=== PATIENT | female | born 1975 | race Caucasian/White ===

== ENCOUNTER → 2023-11-08 | Outpatient (CLI) | payer OTHER ==
[~2023-11-08] MED LIST: ALLEGRA 180MG180 MG PO; FLONASEALLERGY NS; GAS RELIEF 8080 MG PO; HYZAAR 50-12.1 UDTAB PO; LASIX 40MG TABL40 MG PO; LUNESTA3 MG PO; MAGNESIUM200 MG PO; MASON NATURAL2000 IU PO; MASON NATURAL600 MG PO; MOBIC15 MG PO; MOTRIN 600600 MG/TAB PO; NORCO 325 MG-51 TAB PO; OMEGA-3 1000 MG1 CAP PO; PAXIL 10MG10 MG PO; PHENTERMINE15 MG PO; PRILOSEC 20MG20 MG PO; PROAIR HFA0.09 MG/AC IH; STOOL SOFTENER100 M2 PO; THE MEDICINE S200 M2 PO; TRELEGY ELLIPT1 EACH IH
== END ==
LOC: MC.RAD 12:52
DX: R92.0 Mammographic microcalcification found on diagnostic imaging of breast (principal)
CPT/HCPCS: A4648

== ENCOUNTER 2023-11-09 11:20 | Day surgery (SDC) | payer OTHER ==
[~2023-11-09] VITALS: Ht 162.6 cm; Wt 89.0 kg
[~2023-11-09 11:20] MED LIST changes: -ALLEGRA 180MG180 MG PO; -FLONASEALLERGY NS; -GAS RELIEF 8080 MG PO; -HYZAAR 50-12.1 UDTAB PO; -LASIX 40MG TABL40 MG PO; +LR 1,000 ML IV SCH; -LUNESTA3 MG PO; -MAGNESIUM200 MG PO; -MASON NATURAL2000 IU PO; -MASON NATURAL600 MG PO; -MOBIC15 MG PO; -MOTRIN 600600 MG/TAB PO; -NORCO 325 MG-51 TAB PO; -OMEGA-3 1000 MG1 CAP PO; -PAXIL 10MG10 MG PO; -PHENTERMINE15 MG PO; -PRILOSEC 20MG20 MG PO; -PROAIR HFA0.09 MG/AC IH; -STOOL SOFTENER100 M2 PO; -THE MEDICINE S200 M2 PO; -TRELEGY ELLIPT1 EACH IH
[2023-11-09] MEDS ORDERED: Midazolam 2 MG/2 ML VIAL ONE ×2 (12:43→15:48)
[2023-11-09] MEDS ORDERED: fentaNYL 50 MCG/ML 2 ML VIAL ONE (12:43)
[2023-11-09] MEDS ORDERED: Lidocaine PF 2% (20 MG/ML) 5 ML VIAL ONE (12:43)
[2023-11-09] MEDS ORDERED: dexAMETHasone 10 MG/ML VIAL ONE ×3 (12:44→16:59)
[2023-11-09 12:45] VITALS: BP 133/88; PULSE 98; TEMP 97.4
--- NOTE | 2023-11-09 12:58 | NUR ---
Pt arrives to [facility] at 1215 from radiology. Admitted to [facility] bay 6. at bedside. Consents signed. Admission assessments complete. 20G IV site inserted into left hand, LR infusing without issue. See EMAR for medications. Allergies, medications, and pharamcy confirmed with patient. Anesthesia in room to speak with patient. Pt has urine void x1, not measured. Resting in cart in low position, call light within reach.
[2023-11-09] MEDS ORDERED: PHENTERMINE15 MG PO (13:02)
[2023-11-09] MEDS ORDERED: MOBIC15 MG PO (13:02)
[2023-11-09] MEDS ORDERED: MAGNESIUM200 MG PO (13:03)
[2023-11-09] MEDS ORDERED: THE MEDICINE S200 M2 PO (13:04)
[2023-11-09] MEDS ORDERED: OMEGA-3 1000 MG1 CAP PO (13:04)
[2023-11-09] MEDS ORDERED: MASON NATURAL600 MG PO (13:04)
[2023-11-09] MEDS ORDERED: STOOL SOFTENER100 M2 PO (13:05)
[2023-11-09] MEDS ORDERED: MASON NATURAL2000 IU PO (13:05)
[2023-11-09] MEDS ORDERED: ALLEGRA 180MG180 MG PO (13:06)
[2023-11-09] MEDS ORDERED: PRILOSEC 20MG20 MG PO (13:07)
[2023-11-09] MEDS ORDERED: GAS RELIEF 8080 MG PO (13:07)
[2023-11-09] MEDS ORDERED: LUNESTA3 MG PO (13:08)
[2023-11-09] MEDS ORDERED: PAXIL 10MG10 MG PO (13:08)
[2023-11-09] MEDS ORDERED: FLONASEALLERGY NS (13:08)
[2023-11-09] MEDS ORDERED: TRELEGY ELLIPT1 EACH IH (13:08)
[2023-11-09] MEDS ORDERED: HYZAAR 50-12.1 UDTAB PO (13:09)
[2023-11-09] MEDS ORDERED: PROAIR HFA0.09 MG/AC IH (13:10)
[2023-11-09] MEDS ORDERED: LASIX 40MG TABL40 MG PO (13:10)
[2023-11-09] MEDS ORDERED: NS 10 ML IV ONE (15:38)
[2023-11-09] MEDS ORDERED: Lidocaine PF 2% (20 MG/ML) 5 ML VIAL SQ ONE ×2 (16:00)
[2023-11-09] MEDS ORDERED: NORCO 325 MG-51 TAB PO (16:03)
[2023-11-09] MEDS ORDERED: MOTRIN 600600 MG/TAB PO (16:03)
[2023-11-09] MEDS ORDERED: HYDROmorphone 1 MG/1 ML SYRINGE [PACU/SDC ONLY] IV PRN (16:45)
[2023-11-09] MEDS ORDERED: fentaNYL 50 MCG/ML 1 ML SYRINGE/VIAL [PACU/SDC ONLY] IV PRN (16:45)
[2023-11-09] MEDS ORDERED: hydrALAZINE 20 MG/ML 1 ML VIAL IV PRN (16:45)
[2023-11-09] MEDS ORDERED: Ondansetron 4 MG/2 ML VIAL IV PRN ×2 (16:45→18:30)
[2023-11-09] MEDS ORDERED: Ondansetron 4 MG/2 ML VIAL ONE (16:59)
[2023-11-09] MEDS ORDERED: Ketorolac 30 MG/ML VIAL ONE (17:03)
[2023-11-09] MEDS ORDERED: Topical Skin Adhesive 1 EACH (1 ML) TOP ONE (17:25)
[2023-11-09 18:15] VITALS: BP 116/82; PULSE 96; TEMP 97.2
[2023-11-09 18:30] VITALS: BP 120/74; PULSE 100
[2023-11-09] MEDS ORDERED: Ibuprofen 600 MG TAB PO PRN (18:30)
[2023-11-09] MEDS ORDERED: Morphine 4 MG/ML VIAL IV PRN (18:30)
[2023-11-09 18:45] VITALS: BP 128/78; PULSE 96
--- NOTE | 2023-11-09 19:07 | NUR ---
181 RETURNS TO ROOM 6 PER CART WITH HOB ELEVATED 60 DEGEES. AWAKE, AELRT. RESP UNLABORED. VITAL SIGNS OBTAINED. INCISION RIGHT AXILLA AND INCISION RIGHT LATERAL BREAST INTACT WITHOUT REDNESS OR DRAINAGE. AREAS SOFT WITH GENTLE PALPATION. REPORTS MILD DISCOMFORT. ICE PACK IN PLACE TO SURGICAL AREA. CALL LIGHT AT SIDE. IN ROOM 183 HOB ELEVATED 80 DEGREES. TOLERATES PO WATER, SODA AND PUDDING WITHOUT NAUSEA 184 DISHARGE INSTRUCTIONS REVIEWED. PATIENT VERBALIZES UNDERSTANDING. COPY PROVIDED IN DISCHARGE FOLDER. 1857 SITS ON EDGE OF CART. DRESSES SELF
[2023-11-09 21:09] VITALS: BP 113/73; PULSE 100; TEMP 97
== END 2023-11-09 19:07 | disposition home or self-care (01) ==
LOC: SDCO 11:20
DX: D05.11 Intraductal carcinoma in situ of right breast (principal); N64.1 Fat necrosis of breast; Z17.0 Estrogen receptor positive status [ER+]; E66.9 Obesity, unspecified; Z68.33 Body mass index [BMI] 33.0-33.9, adult
CPT/HCPCS: A4648; J0665-JZ; J0690; J1100; J1885; J2250; J2405; J2704; J2795; J3010; J7120; Q9968